=== PATIENT | male | born 1985 | race Two or more races ===

== ENCOUNTER 2018-10-07 16:31 | Emergency (ER) | payer SELFPAY ==
[~2018-10-07] VITALS: Ht 188 cm; Wt 117.9 kg
--- NOTE | 2018-10-07 16:43 | NUR ---
VASILE FROM THE STREET, [employer] CALLED EMS, DRUNK WITH VODKA ON SCENE. PT WALKS WITH STEADY GAIT, APPROPRIATE MENTATION. SKIN INTACT, NO ACUTE DISTRESS NOTED. READY FOR EVAL.
--- NOTE | 2018-10-07 17:35 | NUR ---
Patient discharged to home in stable condition. Written and verbal after care instructions given. Patient verbalizes understanding of instruction.
[2018-10-07 17:50] VITALS: BP 134/82
== END 2018-10-07 17:35 | disposition home or self-care (01) ==
LOC: ER 16:36
DX: F10.129 Alcohol abuse with intoxication, unspecified (principal); E11.9 Type 2 diabetes mellitus without complications; Z60.2 Problems related to living alone; Y90.9 Presence of alcohol in blood, level not specified

== ENCOUNTER 2021-06-04 16:47 | Emergency (ER) | payer MEDICAID ==
--- NOTE | 2021-06-04 18:24 | NUR ---
PT WALKED AWAY FROM [employer]. PT WAS NOT TRIAGED.
== END 2021-06-04 18:26 | disposition left against medical advice (07) ==
LOC: ER 16:53
DX: F10.129 Alcohol abuse with intoxication, unspecified (principal); F12.10 Cannabis abuse, uncomplicated; F15.10 Other stimulant abuse, uncomplicated; Y90.9 Presence of alcohol in blood, level not specified; Z53.29 Procedure and treatment not carried out because of patient's decision for other reasons

== ENCOUNTER 2021-06-04 20:13 | Emergency (ER) | payer MEDICAID ==
[~2021-06-04] VITALS: Ht 172.7 cm; Wt 81.6 kg
--- NOTE | 2021-06-04 20:30 | NUR ---
PATIENT UNABLE TO PROVIDED URINE.
--- NOTE | 2021-06-04 20:50 | NUR ---
PATIENT [facility] C/O ETOH. PATIENT IS ALERT AND ORIENTED X2. AMBULATORY WITH NON LABORED BREATHING. PLACED IN BED 11 AND ON A MONITOR AND POX.
[2021-06-04 21:51] LABS: BASOPHILS # (AUTO) 0.1 K/uL (0.0-0.2); BASOPHILS % (AUTO) 1.1 % (0.0-2.0); HEMATOCRIT 45 % (39-51); HEMOGLOBIN 15.1 g/dL (13.5-17.5); LYMPHOCYTES # (AUTO) 2.9 K/uL (0.8-4.8); LYMPHOCYTES % (AUTO) 44.1 % (20.0-44.0); MEAN CORPUSCULAR HGB CONC 34 g/dl (31.0-36.0); MEAN CORPUSCULAR VOLUME 96 fL (80-96); MONOCYTES # (AUTO) 0.6 K/uL (0.1-1.30); MONOCYTES % (AUTO) 9.3 % (2.0-12.0); NEUTROPHILS # (AUTO) 2.8 K/uL (1.8-8.9); NEUTROPHILS % (AUTO) 43.5 % (43.0-81.0); PLATELET COUNT (AUTO) 210 K/uL (150-450); RED BLOOD CELL COUNT(AUTO) 4.66 MIL/uL (4.5-6.0); WHITE BLOOD COUNT (AUTO) 6.5 K/uL (4.3-11.0)
[2021-06-04 22:24] LABS: ALBUMIN 3.5 g/dL (3.4-5.0); BILIRUBIN,DIRECT 0.2 mg/dL (0.0-0.2); BILIRUBIN,TOTAL 0.4 mg/dL (0.2-1.0); CALCIUM, SERUM 8.5 mg/dL (8.5-10.1); CREATININE 1.1 mg/dL (0.6-1.3); POTASSIUM 3.3 mmol/L (3.5-5.1); TOTAL PROTEIN, SERUM 7.9 g/dL (6.4-8.2)
--- NOTE | 2021-06-04 23:25 | NUR ---
US AT BEDSIDE
--- NOTE | 2021-06-05 01:10 | NUR ---
URINE COLLECTED SENT TO LAB
[2021-06-05 01:31] LABS: BILIRUBIN,URINE Negative (NEGATIVE); COLOR,URINE YELLOW (YELLOW); LEUKOCYTE ESTERASE ,URINE Negative (NEGATIVE); NITRITE, URINE Negative (NEGATIVE); PH,URINE 5.5 (5.0-8.0); PROTEIN,URINE 30 mg/dl (NEGATIVE); UGLUCOSE 100 MG/DL mg/dL (NEGATIVE)
[2021-06-05 02:08] LABS: RBC,URINE 0-2 /HPF (0-2)
[2021-06-05 02:09] LABS: BACTERIA,URINE None seen /HPF (None Seen); HYALINE CASTS, URINE Few /LPF (None Seen); MUCUS,URINE Few /LPF (None Seen); SQUAMOUS EPITHELIAL CELL,UR Few /HPF (None Seen)
--- NOTE | 2021-06-05 04:00 | NUR ---
PATIENT RESTING IN BED EASY TO AROUSE, VSS, PATIENT TOLERATING PO FUILDS WELL. WILL CONTINUE TO MONITOR.
--- NOTE | 2021-06-05 05:44 | NUR ---
PT AWAKE, ALERT AND AMBULATORY WITH STEADY GAITS. PO INTAKE TOLERATED WELL. REPORTED FEELING GOOD AND WOULD LIKE TO LEAVE. MD MADE AWARE.
[2021-06-05 05:45] VITALS: BP 140/70
--- NOTE | 2021-06-05 05:45 | NUR ---
Patient discharged to home in stable condition and steady gait. Written and verbal after care instructions given. Patient verbalizes understanding of instruction.
== END 2021-06-05 05:48 | disposition home or self-care (01) ==
LOC: ER 20:20
DX: F10.129 Alcohol abuse with intoxication, unspecified (principal); Y90.7 Blood alcohol level of 200-239 mg/100 ml; F19.10 Other psychoactive substance abuse, uncomplicated; Z59.00 Homelessness unspecified; R79.89 Other specified abnormal findings of blood chemistry; E11.9 Type 2 diabetes mellitus without complications; K70.10 Alcoholic hepatitis without ascites; Z20.822 Contact with and (suspected) exposure to COVID-19; F15.10 Other stimulant abuse, uncomplicated
CPT/HCPCS: 36415; 76705; 80048; 80076; 80143; 80307; 80320; 81001; 83690; 85025; 87426; 99285; C9803; G0480

== ENCOUNTER 2021-06-05 17:17 | Emergency (ER) | payer MEDICAID ==
[~2021-06-05] VITALS: Ht 172.7 cm; Wt 137.0 kg
--- NOTE | 2021-06-06 05:09 | NUR ---
Patient discharged to home in stable condition and steady gait. Written and verbal after care instructions given. Patient verbalizes understanding of instruction.
[2021-06-06 05:10] VITALS: BP 133/78
== END 2021-06-06 05:11 | disposition home or self-care (01) ==
LOC: ER 17:20
DX: F10.129 Alcohol abuse with intoxication, unspecified (principal); H57.02 Anisocoria; E66.01 Morbid (severe) obesity due to excess calories; Z59.00 Homelessness unspecified; Z68.42 Body mass index [BMI] 45.0-49.9, adult
CPT/HCPCS: 70450-TC

== ENCOUNTER → 2021-06-06 | Emergency (ER) | payer MEDICAID ==
[~2021-06-06] VITALS: Ht 182.9 cm; Wt 137.0 kg
[2021-06-06 15:53] VITALS: BP 150/99
== END | disposition home or self-care (01) ==
LOC: ER 15:59
DX: F10.129 Alcohol abuse with intoxication, unspecified (principal); Y90.9 Presence of alcohol in blood, level not specified